=== PATIENT | male | born 1955 | race Caucasian/White ===

== ENCOUNTER 2017-05-18 22:45 | Inpatient (IN) ==
[2017-05-19] MEDS ORDERED: Naloxone 0.4 MG/ML INJ IVP PRN (03:26)
[2017-05-19] MEDS ORDERED: Ipratropium/Albuterol Neb 3 ML IH PRN (03:30)
[2017-05-19] MEDS ORDERED: Dextrose Gel 15 GM PO PRN ×2 (03:37)
[2017-05-19] MEDS ORDERED: *HR* Dextrose 50 % in Water (Syg) 50 ML SYRINGE IVP PRN (03:37)
[2017-05-19] MEDS ORDERED: D5% in Water 1,000 ML IVC PRN (03:37)
[2017-05-19] MEDS: Ipratropium/Albuterol Neb 3 ML IH SCH ×4 (03:47→21:37)
[2017-05-19] MEDS: Azithromycin 500 MG in D5% in Water 250 ML IVPB SCH (04:29)
[2017-05-19] MEDS: *HR* Heparin 5,000 UNIT/ML VIAL SQ SCH ×2 (04:42→18:23)
[2017-05-19 05:14] LABS: Basophils % 0.3 %; Hematocrit 42.3 % (37.5-50.1); Hemoglobin 12.3 g/dL (12.9-16.9); Immature Granulocytes % 0.6 % (0-4); Lymphocytes # 0.8 K/mcL (0.6-4.6); Lymphocytes % 8.2 %; Mean Corpuscular HGB Conc 29.1 g/dL (31.6-35.5); Mean Corpuscular Hemoglobin 27.2 pg (28.0-33.3); Mean Corpuscular Volume 93.6 fL (83.0-100.0); Mean Platelet Volume 9.7 fL (9.4-12.4); Monocytes # 0.2 K/mcL (0.0-1.3); Monocytes % 2.2 %; Neutrophils # 8.3 K/mcL (1.6-8.9); Nucleated Red Blood Cells 1.1 /100 WBC (0); Platelet Count 231 K/mcL (140-400); Red Blood Count 4.52 M/mcL (4.19-5.50); Red Cell Distribution Width 20.7 % (11.5-14.5); Segmented Neutrophils % 88.7 %
[2017-05-19 05:38] LABS: BUN/Creatinine Ratio 24 (6-26); Blood Urea Nitrogen 29 mg/dL (8-23); Carbon Dioxide 44 mEq/L (23-29); Chloride 91 mEq/L (98-107); Glucose 249 mg/dL (70-105); Magnesium 2.2 mg/dL (1.6-2.6); Osmolality,Calculated 298 (280-300); Potassium 4.2 mEq/L (3.5-5.1); Sodium 137 mEq/L (136-145); eGFR For African Americans > 60 (> 60); eGFR For Non-African Americans > 60 (> 60)
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
[2017-05-19] MEDS: cefTRIAXone 1,000 MG in Water for inj. (sterile) 10 ML IVP SCH (08:45)
[2017-05-19] MEDS: methylPREDNISolone 125 MG/2 ML VIAL IVP SCH ×2 (08:45→18:23)
[2017-05-19] MEDS: Metoprolol XL (24 HR) Succ 25 MG TAB.ER.24H PO SCH (08:46)
[2017-05-19] MEDS: Insulin LISPRO 300 UNITS/3 ML VIAL SQ SCH ×4 (08:57→21:52)
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
[2017-05-19] MEDS ORDERED: Ondansetron ODT 4 MG TAB.RAPDIS SL PRN (12:59)
[2017-05-19] MEDS ORDERED: Furosemide 40 MG TABLET PO SCH (13:00)
[2017-05-19] MEDS ORDERED: Saline Nasal Spray 44 ML BOTTLE NS PRN (13:02)
[2017-05-19] MEDS: Gabapentin 400 MG CAPSULE PO SCH ×2 (13:58→20:27)
[2017-05-19] MEDS: Budesonide/Formoterol 160/4.5 MDI IH SCH ×2 (15:47→21:37)
[2017-05-19 16:17] LABS: ABG Base Excess 15 mEq/L (-2 to 3); ABG HCO3 45 mEq/L (21-27); ABG Oxygen Saturation 91 % (95-98); ABG PCO2 80 mmHg (35-45); ABG PH 7.36 pH Units (7.32-7.45); ABG PO2 69 mmHg (85-104); ABG TCO2 47 mEq/L (20-26)
[2017-05-19] MEDS: Furosemide 20 MG/2 ML VIAL IVP SCH (18:19)
[2017-05-19] MEDS: Nicotine 14 MG PATCH.TD24 TD SCH (18:23)
[2017-05-19] MEDS: Melatonin 3 MG TABLET PO SCH (20:26)
[2017-05-19] MEDS: *HR* HYDROcodone/Acet 10/325 mg TABLET PO PRN (21:49)
[2017-05-20] MEDS: methylPREDNISolone 125 MG/2 ML VIAL IVP SCH ×3 (01:06→15:35)
[2017-05-20 03:02] LABS: Hematocrit 41.5 % (37.5-50.1); Hemoglobin 12.3 g/dL (12.9-16.9); Immature Granulocytes % 0.5 % (0-4); Lymphocytes # 0.9 K/mcL (0.6-4.6); Lymphocytes % 10.9 %; Mean Corpuscular HGB Conc 29.6 g/dL (31.6-35.5); Mean Corpuscular Hemoglobin 27.3 pg (28.0-33.3); Mean Corpuscular Volume 92.2 fL (83.0-100.0); Mean Platelet Volume 9.6 fL (9.4-12.4); Monocytes # 0.5 K/mcL (0.0-1.3); Monocytes % 5.5 %; Neutrophils # 6.8 K/mcL (1.6-8.9); Nucleated Red Blood Cells 0.6 /100 WBC (0); Platelet Count 194 K/mcL (140-400); Red Cell Distribution Width 20.8 % (11.5-14.5); Segmented Neutrophils % 83.1 %
[2017-05-20 03:30] LABS: BUN/Creatinine Ratio 31 (6-26); Blood Urea Nitrogen 40 mg/dL (8-23); Calcium 9.2 mg/dL (8.6-10.3); Carbon Dioxide 40 mEq/L (23-29); Chloride 93 mEq/L (98-107); Glucose 266 mg/dL (70-105); Osmolality,Calculated 303 (280-300); Potassium 4.4 mEq/L (3.5-5.1); Sodium 137 mEq/L (136-145); eGFR For African Americans > 60 (> 60); eGFR For Non-African Americans 57 (> 60)
[2017-05-20] MEDS: Ipratropium/Albuterol Neb 3 ML IH SCH ×4 (04:18→21:37)
[2017-05-20] MEDS: Azithromycin 500 MG in D5% in Water 250 ML IVPB SCH (05:02)
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
[2017-05-20] MEDS: Budesonide/Formoterol 160/4.5 MDI IH SCH ×2 (10:45→21:37)
[2017-05-20] MEDS: *HR* Heparin 5,000 UNIT/ML VIAL SQ SCH ×2 (10:58→18:17)
[2017-05-20] MEDS: Furosemide 20 MG/2 ML VIAL IVP SCH ×2 (10:59→18:18)
[2017-05-20] MEDS: Insulin LISPRO 300 UNITS/3 ML VIAL SQ SCH ×4 (10:59→20:45)
[2017-05-20] MEDS: hydroCHLOROthiazide 25 MG TABLET PO SCH (11:00)
[2017-05-20] MEDS: Nicotine 14 MG PATCH.TD24 TD SCH (11:00)
[2017-05-20] MEDS: Gabapentin 400 MG CAPSULE PO SCH ×3 (11:00→19:08)
[2017-05-20] MEDS: Aspirin Enteric Coated 325 MG Tablet PO SCH (11:00)
[2017-05-20] MEDS: cefTRIAXone 1,000 MG in Water for inj. (sterile) 10 ML IVP SCH (11:01)
[2017-05-20] MEDS: Metoprolol XL (24 HR) Succ 25 MG TAB.ER.24H PO SCH (11:01)
[2017-05-20] MEDS: *HR* HYDROcodone/Acet 10/325 mg TABLET PO PRN ×2 (11:08→19:09)
[2017-05-20] MEDS: Melatonin 3 MG TABLET PO SCH (19:09)
[2017-05-21] MEDS: methylPREDNISolone 125 MG/2 ML VIAL IVP SCH ×2 (00:45→08:06)
[2017-05-21 03:30] LABS: Hematocrit 40.9 % (37.5-50.1); Hemoglobin 11.9 g/dL (12.9-16.9); Immature Granulocytes % 0.5 % (0-4); Lymphocytes # 0.7 K/mcL (0.6-4.6); Lymphocytes % 7.9 %; Mean Corpuscular HGB Conc 29.1 g/dL (31.6-35.5); Mean Corpuscular Hemoglobin 27.2 pg (28.0-33.3); Mean Corpuscular Volume 93.6 fL (83.0-100.0); Mean Platelet Volume 10.2 fL (9.4-12.4); Monocytes # 0.7 K/mcL (0.0-1.3); Monocytes % 8.4 %; Nucleated Red Blood Cells 0.4 /100 WBC (0); Platelet Count 216 K/mcL (140-400); Red Blood Count 4.37 M/mcL (4.19-5.50); Red Cell Distribution Width 20.4 % (11.5-14.5); Segmented Neutrophils % 83.2 %
[2017-05-21 03:58] LABS: BUN/Creatinine Ratio 35 (6-26); Blood Urea Nitrogen 45 mg/dL (8-23); Carbon Dioxide 40 mEq/L (23-29); Chloride 92 mEq/L (98-107); Glucose 408 mg/dL (70-105); Osmolality,Calculated 315 (280-300); Potassium 4.2 mEq/L (3.5-5.1); Sodium 138 mEq/L (136-145); eGFR For African Americans > 60 (> 60); eGFR For Non-African Americans 58 (> 60)
[2017-05-21] MEDS ORDERED: Insulin LISPRO 300 UNITS/3 ML VIAL SQ ONE (04:11)
[2017-05-21] MEDS ORDERED: Insulin LISPRO 300 UNITS/3 ML VIAL SQ SCH ×3 (04:12→08:00)
[2017-05-21] MEDS: Ipratropium/Albuterol Neb 3 ML IH SCH (04:14)
[2017-05-21] MEDS: Azithromycin 500 MG in D5% in Water 250 ML IVPB SCH (05:01)
[2017-05-21] MEDS: *HR* Heparin 5,000 UNIT/ML VIAL SQ SCH (05:04)
[2017-05-21] MEDS: *HR* HYDROcodone/Acet 10/325 mg TABLET PO PRN (05:17)
[2017-05-21 06:34] VITALS: BP 137/73
[2017-05-21] MEDS: Metoprolol XL (24 HR) Succ 25 MG TAB.ER.24H PO SCH (08:05)
[2017-05-21] MEDS: cefTRIAXone 1,000 MG in Water for inj. (sterile) 10 ML IVP SCH (08:05)
[2017-05-21] MEDS: Furosemide 20 MG/2 ML VIAL IVP SCH (08:05)
[2017-05-21] MEDS: Gabapentin 400 MG CAPSULE PO SCH (08:06)
[2017-05-21] MEDS: hydroCHLOROthiazide 25 MG TABLET PO SCH (08:06)
[2017-05-21] MEDS: Aspirin Enteric Coated 325 MG Tablet PO SCH (08:06)
[2017-05-21] MEDS: Nicotine 14 MG PATCH.TD24 TD SCH (08:06)
[2017-05-21] MEDS ORDERED: Insulin DETEMIR 100 UNIT/ML X5UNITS SQ SCH (09:00)
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
== END 2017-05-21 09:39 | disposition left against medical advice (07) | DRG 140 ==
LOC: 2NNU
PROVIDERS: ADMIT Student in an Organized Health Care Education/Training Program; ATTEND Internal Medicine